=== PATIENT | male | born 1970 | race Caucasian/White ===

== ENCOUNTER 2021-11-26 15:37 | Outpatient (CLI) | payer OTHER, SELFPAY ==
--- NOTE | ~2021-11-26 | MR_ITS ---
EXAMINATION: MR IAC wo/w con DATE: 11/26/2021 17:04 INDICATION: Abnormal optokinetic response. Dizziness. Headache. TECHNIQUE: Magnetic resonance imaging (MRI) of the brain, brainstem, and internal auditory canals was performed without and with 17 mL MultiHance intravenous contrast. Sequences included sagittal and ax ial T1-weighted FSE, axial diffusion-weighted FS EPI, axial T2*-weighted GRE, axial T2-weighted FLAIR Propeller, axial T2-weighted Propeller, small ymkxl-tx-ecss coronal FIESTA, small jotvr-ta-borg fouzia nal T1-weighted FSE, and small lnjjn-cs-iugc axial T1-weighted SPGR. Postcontrast sequences included axial T1-weighted FSE, small pgrcy-oq-ucrf coronal T1-weighted FSE, and small uufnc-mr-fweb axial T1- weighted SPGR. Apparent diffusion coefficient (ADC) maps were created. COMPARISON: None. FINDINGS: There is no intracranial hemorrhage, acute infarction, or abnormal intracranial mass lesion . The ventricles are normal in size. There is mild mucosal thickening in the paranasal sinuses. The o rbits are normal. The internal auditory canals and inner and middle ears are normal. The mastoid air cells are normal. IMPRESSION: 1. Normal brain. Reviewed, dictated and finalized at location A. CEMENTER IMPRESSION: 1. Normal brain.
[2021-11-26 16:15] LABS: Estimated Glomerular Filt Rate 53
== END 2021-11-26 15:38 | disposition home or self-care (01) ==
PROVIDERS: Visit Provider Nurse Practitioner Family
DX: R94.11 Abnormal results of function studies of eye (principal)
CPT/HCPCS: 70553; A9577

== ENCOUNTER 2022-02-04 02:29 | Day surgery (SDC) | payer OTHER, SELFPAY ==
--- NOTE | 2022-02-01 17:15 | PM.HPGS ---
History of Present Illness History of Present Illness Consent: Risks, benefits, and alternatives have been discussed and questions answered. Patient agrees to proceed with procedure. Chief complaint: left proxmial ureteral stone Narrative: Ernesto Hawkins is a 51 year old male patient is known to our practice with a history of elevated PSA status post prior negative prostate biopsy by Dr. Dexter in 2019. He was recently admitted this [facility] in [place], [place] for a 4 mm obstructing left proximal ureteral calculus. He underwent cystoscopy and left ureteral stent placement by Dr. Ortega and now presents for definitive stone intervention. He is aware the risk of ureteroscopy including, but not limited to, ureteral injury, persistent stone fragments, postoperative hematuria and recurrent stones. Review of Systems Cardiovascular: Cardiovascular: Denies chest pain, Denies lightheadedness, Denies palpitations and Denies dyspnea Respiratory: Respiratory: Denies dyspnea Gastrointestinal: Gastrointestinal: Denies diarrhea, Denies nausea and Denies vomiting Genitourinary: Genitourinary: Denies hematuria and Denies dysuria Endocrine: Endocrine: Denies palpitations Meds Home Medications and Allergies Allergies Allergy/AdvReac Type Severity Reaction Status Date / Time No Known Allergies Allergy Verified 10/24/18 05:58 Exam Const: General: no acute distress Resp: Effort & Inspection: normal respiratory effort GI: Inspection: non-distended GI Palp: No abdominal tenderness and No Guarding due to palpation present (GI) Auscultation: normal bowel sounds Assessment and Plan Assessment and plan (1) Left ureteral stone: Code(s): N20.1 - Calculus of ureter Status: Acute Assessment and Plan: Cystoscopy, left ureteroscopy with stone extraction, possible laser lithotripsy, possible retrograde pyelography and ureteral stent replacement.
--- NOTE | 2022-02-03 09:22 | PC.NURSE ---
Pt at 's office, unable to complete interview. Instructed pt to arrive to [facility] at 1030 on 02/04/22 for surgery at 1230. Informed that one person could come in to the hospital with him. Pt instructed to have no food after midnight, but could have up to 20 oz of clear liquids until 0930. Pt did not have full med list with him, but knew he takes a pain pill and amlodipine. Instructed that both medications could be taken in the morning. Pt notified that he would not be able to drive himself home from procedure. Pt verbalizes understanding of all information and has no further questions at this time.
[2022-02-04] VITALS (11 sets, daily range): BP systolic 112–144; BP diastolic 82–102; PULSE 75–111; RESP 12–18; TEMP 36.4–36.8; O2SAT 95–100; BMI 27.0
--- NOTE | ~2022-02-04 | XR_ITS ---
EXAMINATION: XR retrograde pyelogram LT DATE: 02/04/2022 12:10 INDICATION: Left internal ureteral stent placement TECHNIQUE: Fluoroscopic images from a left internal ureteral stent placement are submitted for review . 50 to seconds of fluoroscopy time. 9 fluoroscopic images. FINDINGS: There is a left double-J internal ureteral stent projecting in expected position, with proximal [place] loop at the level of the renal pelvis and distal loop in the pelvis within the bladder lumen. IMPRESSION: 1. Left internal ureteral stent placement. Please refer to real-time procedural findings for detail s. Reviewed, dictated and finalized at location B. IMPRESSION: 1. Left internal ureteral stent placement. Please refer to real-time procedur al findings for details.
--- NOTE | 2022-02-04 06:34 | WPDHPUPDATE1 ---
History and Physical Update Update Date/Time: 02/04/22 06:34 History and Physical has been reviewed, including an updated exam of the patient. There are NO changes in the patient's condition. Risks, benefits, and alternatives have been discussed and questions answered. Patient agrees to proceed with procedure.
--- NOTE | 2022-02-04 08:36 | PC.NURSE ---
Report to the Outpatient Waiting Room, entrance under the green pavilion located off [facility], at time 1030 on date 02/04/22. OR Time: 1230. - You and your visitor will be asked a series of questions to screen for COVID 19 for your protection. - A mask is required within the hospital. Preoperative COVID Testing Requirements: No COVID Test needed if: (proof is required; if not received patient will have Rapid Test prior to entry) - Patient has received COVID Vaccine at least 14 days prior to procedure date or - Patient has positive COVID test result within last 90 days of surgery date. COVID Test needed if above criteria is not met If not COVID vaccinated a COVID test must be conducted within 72 hours of surgery and patient is asked to isolate self from time of testing until procedure. You will go to the [facility] for your COVID testing. The [facility] is located at the corner of [address] [facility]. You will only be called if COVID results are positive and your surgeon may reschedule your elective surgery date. Patients may have clear liquids (water, carbonated beverages, clear teas, apple juice) until 3 hours prior to surgery with a maximum of 20 ounces. - No food from midnight until time of surgery - Infants may have breast milk until 4 hours before surgery, formula 6 hours prior to surgery. - Children will be allowed to drink immediately following surgery. If applicable, please bring a bottle or sippy cup to assist with drinking. Juice, water, soda, and popsicles are readily available. For infants on formula, please bring formula the day of surgery. Pacifiers are allowed. Take the following medications with a SIP of water the morning of surgery: AMLODIPINE, XANAX (IF NEEDED) Medications to discontinue per physician: Date to take last dose: Please no make-up, nail tamazight, hairspray, perfume, deodorant, or body powder the day of surgery. No jewelry (including any body piercings) or valuables the day of surgery, leave them at home. Please take a shower or bath the night before, or the morning of, surgery with an antibacterial soap. Wear comfortable, loose fitting clothing. Children are encouraged to wear pajamas. - Jewelry must be removed prior to entering the operating room. Rings and piercings that are not removed may be cut off. - The hospital will not accept responsibility for valuables. - Please leave all valuables, including medications, at home the day of surgery. If you are going home after surgery, a licensed class a truck driver must drive you home. - NO public transportation without another adult. - We recommend that an adult stay with you for 24 hours following discharge. - We also recommend that you do not drive, make important decision, drink alcoholic beverages, or take any drugs that were not prescribed by your health care provider for at least 24 hours after your discharge time. One visitor will be allowed to accompany the patient into the hospital. Patients visitor will be instructed to remain with patient at all times or leave the building. We will allow the visitor to come back to the postoperative area when patient is ready. Follow any additional instructions given to you from your surgeon. Telephone instructions given to CHRISTIAN PIERCE and asked if any additional questions and then verbalized understanding. Patient advised to call surgeon office or pre surgery nurse liaison [phone] if any additional questions.
--- NOTE | 2022-02-04 10:55 | P.PNAN_ITS ---
Anes - Initial Pre Proc Eval Procedure: Operation Date: 02/04/22 12:30 Proposed Procedures p Cystoscopy, Left Ureteroscopy, Retrograde Pyelogram, Stone Extraction, Stent Placement - Devyn Rodriguez MD s Possible Holmium Laser Procedure - Devyn Rodriguez MD Date/Time: 02/04/22 10:55 Surgeon: Devyn Rodriguez MD Pre Op Diagnosis: left proxmial ureteral stone Patient Data Age: 51 Gender: M Height: 1.73 m Weight: 80.74 kg Allergies Allergy/AdvReac Type Severity Reaction Status Date / Time No Known Allergies Allergy Verified 02/04/22 10:48 Home Medications Medication Instructions Recorded Confirmed Type alprazolam [Xanax] 0.5 mg PO TID PRN 02/04/22 02/04/22 History amlodipine 5 mg PO BID 02/04/22 02/04/22 History ergocalciferol (vitamin D2) 1,250 mcg PO WEEKLY 02/04/22 02/04/22 History [Vitamin D2] multivitamin 1 tablet PO DAILY 02/04/22 02/04/22 History nortriptyline 25 mg PO HS 02/04/22 02/04/22 History oxycodone-acetaminophen 1 tablet PO Q6H PRN 02/04/22 02/04/22 History promethazine 25 mg PO Q6H PRN 02/04/22 02/04/22 History tamsulosin [Flomax] 0.4 mg PO DAILY 02/04/22 02/04/22 History Patient hx anesthesia problems: none Family hx anesthesia problems: none Results Review: All pre-operative results and documents have been reviewed as part of the pre-operative evaluation. [facility] Past Medical History Medical History (Updated 02/04/22 @ 10:55 by Issac Baxter DO) Anxiety Hypertension Palpitations Social History Social History Smoking status: Never smoker Alcohol intake: former Alcohol use details: NOT SINCE COMPLICATIONS WITH LONG COVID Substance use: never Substance use type: does not use Living arrangements: alone Spiritual care concerns: No Anes - Eval Final PreProcedure Day of Procedure 02/04/22 10:55 Patient weight: overweight Heart: regular rate and rhythm Lungs: clear to auscultation and normal air movement Airway: Mallampati scale class II Neurological: alert and oriented Last oral intake: >/= 8 hours ASA classification: II Emergent: no Anesthetic plan: proceed Anesthesia type and monitoring: general LMA and standard monitoring Results Review: All pre-operative results and documents have been reviewed as part of the pre-operative evaluation. Informed Consent: The patient's anesthetic plan and its attendant risks and benefits were discussed with the patient/family/POA. Questions were solicited and answers provided to the satisfaction of the patient/family/POA.
[2022-02-04] MEDS: LACTATED RINGERS 1,000 ML 30 ML IV CONT ×2 (11:10→13:53)
[2022-02-04] MEDS: fentaNYL CITRATE INJ (*CRX) 100 MCG/2 ML VIAL 25 MCG IV PUSH ×8 (11:11→13:23)
[2022-02-04] MEDS: ceFAZolin 2 GM/D5W 50 ML 2 GM/50 ML BAG IVPB (11:46)
[2022-02-04] MEDS: LIDOCAINE HCL 2% GEL UROJET 10 ML PKG MUCOUS MEM (11:57)
--- NOTE | 2022-02-04 12:15 | P.OP_ITS ---
Procedure Note - Detailed Date of Procedure 02/04/22 Pre-op Diagnosis Left proxmial ureteral stone Post-op Diagnosis Same Procedure Performed Cystoscopy with left ureteral stent removal, Left retrograde pyelography, left ureteroscopy with stone extraction Surgeon Devyn Rodriguez MD Anesthesia General Description of Procedure Patient is brought to the operative suite where he was prepped and draped in routine sterile fashion while in a dorsal lithotomy position. This is stone after the uneventful induction of the general LMA anesthetic. Cystoscopy is undertaken with a 19 F rigid cystoscope. There was no urethral strictures and minimal prostatic hyperplasia. He has an indwelling left ureteral stent which was brought to the external urethral meatus with a grasping forceps. A 0.035 in glidewire was advanced in left renal pelvis and flexible ureteroscopy was undertaken with a 7.5 F flexible ureteral scope. his 4 mm stone is found in the renal pelvis. I inspected all calices and found no additional. Additionally, left ureter was independently inspected with the flexible ureteral scope and fo und to be without stones. Extracted is 4 mm stone with a Zero tip basket with ease. I opted not to place ureteral stent. He was taken recovery room good condition. Estimated Blood Loss 0 Drains No Packing No Pathology Yes Complications No immediate complications Condition Stable Disposition PACU
[2022-02-04] MEDS: ONDANSETRON INJ 4 MG/2 ML VIAL IV PUSH (13:02)
[2022-02-04] MEDS: HYDROmorphone HCL INJ (*CRX) 1 MG/ML SYR 0.5 MG IV PUSH ×2 (13:38→13:52)
--- NOTE | 2022-02-04 14:34 | SUR.PHASEII ---
PATIENT STATES BLOOD PRESSURE HAS BEEN ELEVATED AT HOME 170S/110S. SEEING NEW PHYSICIAN, TO START BP MEDS NEXT WEEK.
--- NOTE | 2022-02-04 15:20 | SUR.PHASEII ---
02-04-22 PATIENT TAKEN OUT OF DEPARTMENT AT 1436 BY WHEELCHAIR. TAKEN BY MAINTENANCE DISPATCHER LAZARO WEST TO WAITING ROOM. PATIENT STATED HIS RIDE WAS 15 MINUTES AWAY, ASKED TO DRIVE HIMSELF, STATED HIS CAR WAS IN PARKING LOT AND HE DROVE HIMSELF HERE THIS MORNING. PATIENT EDUCATED BY HOSPITAL STAFF ON RISKS OF DRIVING SELF HOME, PATIENT WAS INSTRUCTED TO WAIT FOR RIDE. PATIENT WAITED FOR FRIEND TO PICK HIM UP @1517. PATIENT WAS THEN SEEN GETTING DROPPED OFF AT HIS CAR AND DROVE HIMSELF OUT OF THE PARKING LOT. MANAGER [address] RADHA BARKSDALE NOTIFIED.
== END 2022-02-04 14:36 | disposition home or self-care (01) ==
PROVIDERS: Visit Provider Urology
PROC: (CPT 52352; principal; 2022-02-04 12:30)
DX: N20.1 Calculus of ureter (principal); I10 Essential (primary) hypertension; R00.2 Palpitations; F41.9 Anxiety disorder, unspecified
CPT/HCPCS: 52332; 52352; 74420; 82365; 88300; A9270; C1758; C1769; J0690; J1170; J2250; J2405; J2704; J3010; J7120; Q9966

== ENCOUNTER 2023-03-09 06:40 | Day surgery (SDC) | payer OTHER, SELFPAY ==
[2023-03-09] VITALS (9 sets, daily range): BP systolic 110–162; BP diastolic 70–108; PULSE 63–89; RESP 14–18; TEMP 36.6–37.1; O2SAT 97–100
--- NOTE | ~2023-03-09 | CT_ITS ---
Non-contrast CT scan of the Abdomen and Pelvis Clinical indication: Left flank pain Technique: 2.5 mm axial scans were obtained through the abdomen and pelvis without intravenous or or al contrast. Dose reduction technique was used on this scan by utilizing automated exposure control a nd iterative reconstruction technique. The dose-length product (DLP) was 258.61 mGy-cm. COMPARISON: 10/24/2018 Findings: Images through the lung bases reveal 4 mm left basilar pulmonary nodule adjacent to the fi ssure (axial image 22), unchanged. There is a 7 x 5 mm ovoid stone the proximal left ureter, with Hounsfield units in the range of 1700 (axial image 94). There is mild left hydronephrosis. There is an additional 8 x 6 mm ovoid stone, non obstructing, lying dependently in the dilated left renal pelvis. Multiple nonobstructing right renal stones are present, measuring up to 1.1 cm in maximum diameter. No right ureteral stone or right hydr onephrosis. The liver, spleen, pancreas, gallbladder, and adrenals appear normal. There is no aortic aneurysm. There is no evidence of bowel obstruction. Normal appendix. Images through the pelvis were performed. There is no evidence of ascites or lymphadenopathy. Urinary bladder unremarkable. Prostate gland and seminal vesicles are unremarkable. Bilateral L5 pars intera rticularis defects are present, with 6 mm anterolisthesis of L5 over S1. Impression: 7 x 5 mm proximal left ureteral stone with mild left hydronephrosis, as detailed above. Additional bilateral nonobstructing renal stones, as detailed above. Bilateral L5 pars interarticularis defects, with 6 mm anterolisthesis of L5 over S1. Reviewed, dictated and finalized at location . Impression: 7 x 5 mm proximal left ureteral stone with mild left hydronephrosis, as detaile d above. Additional bilateral nonobstructing renal stones, as detailed above. Bilateral L5 pars interarticularis defects, with 6 mm anterolisthesis of L5 ove r S1.
--- NOTE | ~2023-03-09 | XR_ITS ---
EXAMINATION: XR retrograde pyelo w/stent LT DATE: 03/09/2023 10:40 INDICATION: Left internal ureteral stent placement TECHNIQUE: Fluoroscopic images from a left internal ureteral stent placement are submitted for review . 18 seconds of fluoroscopy time. FINDINGS: There is a left double-J internal ureteral stent projecting in expected position, with proximal Crooks loop at the level of the renal pelvis. Distal loop is not visualized post deployment. IMPRESSION: 1. Left internal ureteral stent placement. Please refer to real-time procedural findings for detail s. Reviewed, dictated and finalized at location A. IMPRESSION: 1. Left internal ureteral stent placement. Please refer to real-time procedur al findings for details.
--- NOTE | ~2023-03-09 | XR_ITS ---
XR abdomen/kub 1V DATE: 03/09/2023 10:06 INDICATION: Left ureteral stone TECHNIQUE: Portable supine AP views COMPARISON: March 09, 2023 CT abdomen pelvis FINDINGS: Approximately 4 x 6.8 mm calcified calculus is noted at the very proximal left ureter at th e L2-3 level. Bilateral renal calcified calculi No evidence of bowel obstruction. Included skeletal structures are unremarkable. Heart size appears normal. The lung bases appear clear. Are noted as well. The psoas shadows are intact. IMPRESSION: Proximal left ureteral calcified calculus in bilateral nephrolithiasis Reviewed, dictated and finalized at Location A. Reviewed, dictated and finalized at location B. IMPRESSION: Proximal left ureteral calcified calculus in bilateral nephrolithia sis
[2023-03-09 07:24] LABS: Basophils Percent Auto 0.3 % (0.2-1.2); Eosinophils Absolute Auto 0.1 K/mm3 (0-0.3); Eosinophils Percent Auto 0.7 % (0-4.4); Hematocrit 45.8 % (42.0-52.0); Hemoglobin 15.5 g/dL (14.0-18.0); Immature Granulocyte Absolute 0.03 K/mm3 (0.00-0.031); Immature Granulocyte Percent A 0.3 % (0-0.5); Lymphocytes Absolute Auto 1.53 K/mm3 (0.9-3.2); Lymphocytes Percent Auto 12.8 % (18.3-44.2); Mean Corpuscular HGB Conc 33.8 g/dl (32-36); Mean Corpuscular Hemoglobin 30.9 pg (26-34); Mean Corpuscular Volume 91.2 fl (80-100); Mean Platelet Volume 9.9 fl (7.4-10.4); Monocytes Absolute Auto 0.9 K/mm3 (0.1-0.6); Monocytes Percent Auto 7.3 % (2.6-8.5); Neutrophils Absolute Auto 9.5 K/mm3 (1.3-6.7); Neutrophils Percent Auto 78.6 % (45.5-73.1); Platelet Count Result 214 k/mm3 (150-375); Red Blood Count 5.02 M/mm3 (4.6-6.20); Red Cell Distribution Width 12.6 % (11.5-14.5)
[2023-03-09 07:33] LABS: Alanine Aminotransferase 40 U/L (6-50); Albumin Level 4.8 g/dL (3.5-5.1); Alkaline Phosphatase 82 U/L (38-126); Anion Gap 8 mmol/L (8-16); Aspartate Amino Transferase 36 U/L (17-59); Bilirubin,Total 0.7 mg/dL (0.2-1.3); Blood Urea Nitrogen 16 mg/dL (9-20); Calcium 9.1 mg/dL (8.4-10.2); Carbon Dioxide 24 mmol/L (22-30); Chloride 108 mmol/L (98-107); Estimated CRCL calculation 59 ml/min; Estimated Glomerular Filt Rate 58; Glucose 108 mg/dL (65-110); Potassium 4.2 mmol/L (3.4-5.0); Sodium 140 mmol/L (137-145)
[2023-03-09] MEDS: ONDANSETRON INJ 4 MG/2 ML VIAL IV PUSH ×2 (07:53→10:58)
[2023-03-09] MEDS: SODIUM CHLORIDE 0.9% IV 1,000 ML 999 ML IV CONT (07:53)
[2023-03-09] MEDS: MORPHINE SULFATE (*CRX) 4 MG/ML INJ IV PUSH (07:53)
[2023-03-09] MEDS: HYDROmorphone HCL INJ (*CRX) 1 MG/ML SYR IV PUSH (08:16)
--- NOTE | 2023-03-09 09:02 | ED.MALEGU ---
HPI - Male Genitourinary General Chief complaint: Urogenital-Male Stated complaint: Flank pain Time Seen by Provider: 03/09/23 07:03 History of Present Illness HPI Narrative: Patient is a 52-year-old male with history of kidney stones presents ER with left flank pain. Reports he last passed a kidney stone last week and he passes them quite often. This pain has been ongoing over the last 3 days. No improvement with home Percocet. Typically sees Dr. Rodriguez. No fevers or chills or sweats. Reports decreased urination. No dysuria. No blood in stool. No pain in abdomen or testicle. Related Data Home Medications Medication Instructions Recorded Confirmed alprazolam 0.5 mg tablet (Xanax) 0.5 mg PO TID PRN Anxiety 02/04/22 02/04/22 amlodipine 5 mg tablet 5 mg PO BID 02/04/22 02/04/22 ergocalciferol (vitamin D2) 1,250 1,250 mcg PO WEEKLY 02/04/22 02/04/22 mcg (50,000 unit) capsule (Vitamin D2) multivitamin 1 tablet PO DAILY 02/04/22 02/04/22 nortriptyline 25 mg capsule 25 mg PO HS 02/04/22 02/04/22 oxycodone-acetaminophen 10 mg-325 1 tablet PO Q6H PRN Pain 02/04/22 02/04/22 mg tablet promethazine 25 mg tablet 25 mg PO Q6H PRN Nausea 02/04/22 02/04/22 tamsulosin 0.4 mg capsule (Flomax) 0.4 mg PO DAILY 02/04/22 02/04/22 Allergies Allergy/AdvReac Type Severity Reaction Status Date / Time No Known Allergies Allergy Verified 02/04/22 10:48 Review of Systems Review of Systems: All systems reviewed & are unremarkable except as noted in HPI and below Constitutional: Constitutional: Denies chills and Denies fever(s) Cardiovascular: Cardiovascular: Denies chest pain, Denies rapid heart rate and Denies radiating jaw, neck or arm pain Respiratory: Respiratory: Denies cough and Denies dyspnea Gastrointestinal: Gastrointestinal: Denies abdominal pain, Reports nausea and Denies vomiting Genitourinary: Genitourinary: Denies hematuria, Reports oliguria, Denies dysuria and Denies testicular pain Comments: Left flank pain PMFSH Past Medical History Medical History (Updated 03/09/23 @ 09:02 by Tim Avilez MD) Anxiety Hypertension Palpitations Social History Social History Smoking status: Never smoker Alcohol intake: former Alcohol use details: NOT SINCE COMPLICATIONS WITH LONG COVID Substance use: never Substance use type: does not use Living arrangements: alone Spiritual care concerns: No Exam Narrative: GENERAL: Uncomfortable-appearing, well-nourished, and in mild distress. HEAD: Normocephalic, atraumatic. EYES: PERRL and EOMI. ENT: Mucous membranes moist. CHEST: Clear to auscultation. No respiratory distress. HEART: Regular rate and rhythm. Normal peripheral pulses. Back: No CVA tenderness. EXTREMITIES: Normal range of motion. No edema. SKIN: Warm, dry, no rash. NEURO: Alert and oriented x3. PSYCH: Normal mood and affect. Course Course Emergency Course: Symptoms markedly improved with Dilaudid, morphine did not help. Discussed case with urology and given the size and proximity of the stone and patient's symptoms they would like to take him to the OR for stenting. Patient agreeable to plan. Patient will also receive ceftriaxone given elevated white blood cell count with obstructing stone. Patient will try to provide urine. Vital Signs Vital signs: Vital Signs Temperature 97.8 F 03/09/23 06:48 Pulse Rate 70 03/09/23 06:48 Respiratory Rate 17 03/09/23 06:48 Blood Pressure 155/108 H 03/09/23 06:48 Pulse Oximetry 100 03/09/23 06:48 Temperature 97.8 F 03/09/23 06:48 Pulse Rate 89 03/09/23 09:02 Respiratory Rate 18 03/09/23 09:02 Blood Pressure 162/90 H 03/09/23 09:02 Pulse Oximetry 99 03/09/23 09:02 MDM - Male Genitourinary Lab Data 03/09/23 07:18 03/09/23 07:18 Labs: Lab Results 03/09/23 03/09/23 03/09/23 Range/Units 07:18 07:18 09:14 WBC 1
[2023-03-09] MEDS: HYDROmorphone HCL INJ (*CRX) 1 MG/ML SYR 0.5 MG IV PUSH (09:08)
--- NOTE | 2023-03-09 09:20 | ECG_ITS ---
Measurements Intervals [place] Rate: 74 P: 7 ME: 170 QRS: -1 QRSD: 84 T: 5 QT: 369 QTc: 410 Interpretive Statements SINUS RHYTHM NO PREVIOUS ECG AVAILABLE FOR COMPARISON Electronically Signed On 03-09-2023 15:53:36 CDT by Marzena Smith M.D.
[2023-03-09 09:27] LABS: Appearance Urine Clear (Clear); Bacteria Urine None Seen /hpf; Bilirubin Urine Negative (Negative); Blood Urine 3+ (Negative); Color Urine Yellow (Yellow); Glucose Urine UA Negative (Negative); Ketones Urine Negative (Negative); Leukocyte Esterase Ur 1+ LEU/UL (Negative); Nitrate Urine Negative (Negative); Non Pathogenic Casts 0-2; Protein Urine Trace mg/dL (Negative); RBC Urine >100 /hpf (0-2); Specific Grav Ur 1.012 (1.001-1.035); Squamous Epithelial Cell Urine None seen /hpf (Few); Urobilinogen Urine 0.2 mg/dL (<2.0); WBC Urine 21-50 /hpf; pH Urine 6.5 (5.0-9.0)
[2023-03-09 09:37] LABS: Add Urine Microscopic? YES
--- NOTE | 2023-03-09 09:49 | WPDANESEPPF ---
Anes - Initial Pre Proc Eval Procedure: Operation Date: 03/09/23 10:30 Proposed Procedures p Cystosccopy, Left Retrograde Pyelogram, Left Stent Placement - Christopher Jimenez MD Date/Time: 03/09/23 09:49 Surgeon: Christopher Jimenez MD Pre Op Diagnosis: Flank pain Patient Data Age: 52 Gender: M Height: 1.75 m Weight: 80 kg Last Vital Signs Temp 36.6 C 03/09/23 06:48 Pulse 89 03/09/23 09:02 Resp 18 03/09/23 09:02 BP 162/90 H 03/09/23 09:02 Pulse Ox 99 03/09/23 09:02 Allergies Allergy/AdvReac Type Severity Reaction Status Date / Time No Known Allergies Allergy Verified 02/04/22 10:48 Home Medications Medication Instructions Recorded Confirmed Type alprazolam 0.5 mg tablet (Xanax) 0.5 mg PO TID PRN Anxiety 02/04/22 02/04/22 History amlodipine 5 mg tablet 5 mg PO BID 02/04/22 02/04/22 History ergocalciferol (vitamin D2) 1,250 1,250 mcg PO WEEKLY 02/04/22 02/04/22 History mcg (50,000 unit) capsule (Vitamin D2) hydrocodone 5 mg-acetaminophen 325 1 - 2 tablet PO Q6H PRN pain #20 02/04/22 Rx mg tablet tabs multivitamin 1 tablet PO DAILY 02/04/22 02/04/22 History nortriptyline 25 mg capsule 25 mg PO HS 02/04/22 02/04/22 History oxycodone-acetaminophen 10 mg-325 1 tablet PO Q6H PRN Pain 02/04/22 02/04/22 History mg tablet promethazine 25 mg tablet 25 mg PO Q6H PRN Nausea 02/04/22 02/04/22 History sulfamethoxazole 800 1 tablet PO Q12H #6 tabs 02/04/22 Rx mg-trimethoprim 160 mg tablet tamsulosin 0.4 mg capsule (Flomax) 0.4 mg PO DAILY 02/04/22 02/04/22 History Laboratory Tests 03/09/23 03/09/23 03/09/23 07:18 07:18 09:14 WBC 12.0 K/mm3 H K/mm3 (4.5-10.0) RBC 5.02 M/mm3 M/mm3 (4.6-6.20) Hgb 15.5 g/dL g/dL (14.0-18.0) Hct 45.8 % % (42.0-52.0) MCV 91.2 fl fl (80-100) MCH 30.9 pg pg (26-34) MCHC 33.8 g/dl g/dl (32-36) RDW 12.6 % % (11.5-14.5) Plt Count 214 k/mm3 k/mm3 (150-375) MPV 9.9 fl fl (7.4-10.4) Immature Gran % (Auto) 0.3 % % (0-0.5) Neut % (Auto) 78.6 % H % (45.5-73.1) Lymph % (Auto) 12.8 % L % (18.3-44.2) [place] % (Auto) 7.3 % % (2.6-8.5) Eos % (Auto) 0.7 % % (0-4.4) Baso % (Auto) 0.3 % % (0.2-1.2) Lymph # (Auto) 1.53 K/mm3 K/mm3 (0.9-3.2) [place] # (Auto) 0.9 K/mm3 H K/mm3 (0.1-0.6) Eos # (Auto) 0.1 K/mm3 K/mm3 (0-0.3) Baso # (Auto) 0.0 K/mm3 K/mm3 (0.0-0.1) Abs Immat Gran (auto) 0.03 K/mm3 K/mm3 (0.00-0.031) Absolute Neuts (auto) 9.5 K/mm3 H K/mm3 (1.3-6.7) Absolute Nucleated RBC 0.0 K/mm3 K/mm3 (0.0-0.012) Nucleated RBC % 0.0 % % (0.0-0.2) Sodium 140 mmol/L mmol/L (137-145) Potassium 4.2 mmol/L mmol/L (3.4-5.0) Chloride 108 mmol/L H mmol/L (98-107) Carbon Dioxide 24 mmol/L mmol/L (22-30) Anion Gap 8 mmol/L mmol/L (8-16) BUN 16 mg/dL mg/dL (9-20) Creatinine 1.30 mg/dL mg/dL (0.7-1.3) Estim Creat Clear Calc 59 ml/min ml/min Estimated GFR 58 L (59 - ) Glucose 108 mg/dL mg/dL (65-110) Calcium 9.1 mg/dL mg/dL (8.4-10.2) Total Bilirubin 0.7 mg/dL mg/dL (0.2-1.3) AST 36 U/L U/L (17-59) ALT 40 U/L U/L (6-50) Alkaline Phosphatase 82 U/L U/L (38-126) Total Protein 7.0 g/dL g/dL (6.3-8.2) Albumin 4.8 g/dL g/dL (3.5-5.1) Urine Color Yellow (Yellow) Urine Appearance Clear (Clear) Urine pH 6.5 (5.0-9.0) Ur Specific [place] 1.012 (1.001-1.035) Urine Protein Trace mg/dL mg/dL (Negative) Urine Glucose (UA) Negative mg/dL mg/dL (Negative) Urine Ketones Negative mg/dL mg/dL (Negative) Ur Blood (Man) 3+ H
[2023-03-09] MEDS: LACTATED RINGERS 1,000 ML 30 ML IV CONT (09:50)
--- NOTE | 2023-03-09 09:57 | WPDURCON ---
Assessment and Plan Assessment and plan (1) Left ureteral stone: Code(s): N20.1 - Calculus of ureter Status: Acute Assessment and Plan: Obtain Consent. Get KUB for surgical planning, if stone is visible, will plant to do a left ESWL next Tuesday. Patient takes NSAIDS for his knee, which he is aware he will need to hold for one week prior. Keep NPO. Dr. Jimenez to take patient to OR today for: Cystoscopy, left stent placement, left retrograde pyelogram. Urology Consult Note HPI Date Seen: 03/09/23 Time Seen: 09:58 Requesting Physician: Christopher Jimenez MD Primary Care Provider: PHYSICIAN NOT ON STAFF Consult Narrative Reason for consult: Left Ureteral Stone/Left Flank Pain Narrative: Ernesto Hawkins is a 52 year old male who presented to the ER this morning for worsening left flank pain, nausea, vomiting and urgency of urination that began to days ago, but worsened throughout the night. He has a long history of kidney stones and is a longtime patient of Dr. Rodriguez. He took Hydrocodone but the pain was unbearable, Dilaudid and Morphine in the ER have not resolved his pain. He has a WBC of 12,000, Creatinine 1.30. UA shows blood only but is not suspicious of infection. CT scan shows a 7x5mm proximal left uretal stone with mild left hydronephrosis and bilateral non obstructive renal stones including an 8x6mm left renal stone in the dilated renal pelvis. There has been no KUB done at this time. Urine cultures are pending at this time. Review of Systems Cardiovascular: Cardiovascular: Denies chest pain Respiratory: Respiratory: Reports no additional respiratory complaints Gastrointestinal: Gastrointestinal: Reports abdominal pain (LUQ), Reports nausea and Reports vomiting Genitourinary: Genitourinary: Denies hematuria, Denies dysuria, Reports flank pain (Left Flank pian), Denies urinary frequency, Denies urinary hesitancy, Denies urinary incontinence and Reports urinary urgency PMF Past Medical History Medical History Anxiety Hypertension Palpitations Social History Social History Smoking status: Never smoker Alcohol intake: former Alcohol use details: NOT SINCE COMPLICATIONS WITH LONG COVID Substance use: never Substance use type: does not use Living arrangements: alone Spiritual care concerns: No Meds Home Medications and Allergies Home Medications Medication Instructions Recorded Confirmed Type alprazolam 0.5 mg tablet (Xanax) 0.5 mg PO TID PRN Anxiety 02/04/22 02/04/22 History amlodipine 5 mg tablet 5 mg PO BID 02/04/22 02/04/22 History ergocalciferol (vitamin D2) 1,250 1,250 mcg PO WEEKLY 02/04/22 02/04/22 History mcg (50,000 unit) capsule (Vitamin D2) hydrocodone 5 mg-acetaminophen 325 1 - 2 tablet PO Q6H PRN pain #20 02/04/22 Rx mg tablet tabs multivitamin 1 tablet PO DAILY 02/04/22 02/04/22 History nortriptyline 25 mg capsule 25 mg PO HS 02/04/22 02/04/22 History oxycodone-acetaminophen 10 mg-325 1 tablet PO Q6H PRN Pain 02/04/22 02/04/22 History mg tablet promethazine 25 mg tablet 25 mg PO Q6H PRN Nausea 02/04/22 02/04/22 History sulfamethoxazole 800 1 tablet PO Q12H #6 tabs 02/04/22 Rx mg-trimethoprim 160 mg tablet tamsulosin 0.4 mg capsule (Flomax) 0.4 mg PO DAILY 02/04/22 02/04/22 History Allergies Allergy/AdvReac Type Severity Reaction Status Date / Time No Known Allergies Allergy Verified 03/09/23 10:05 Vital Signs Vital Signs - 24 hr 03/09/23 06:48 03/09/23 09:02 Temperature 97.8 F Pulse Rate 70 89 Respiratory Rate 17 18 Blood Pressure 155/108 H 162/90 H Pulse Oximetry 100 99 Exam Const: General: cooperative Resp: Effort & Inspection: normal respiratory effort Cardio: Rate: regular rate GI: GI Palp: Yes Soft to palpation and Yes Tenderness to palpation present (GI) (LUQ) : General: Y
[2023-03-09] MEDS: fentaNYL CITRATE INJ (*CRX) 100 MCG/2 ML VIAL 25 MCG IV PUSH ×5 (10:05→11:14)
--- NOTE | 2023-03-09 10:12 | WPDHPUPDATE1 ---
History and Physical Update Update Date/Time: 03/09/23 10:12 History and Physical has been reviewed, including an updated exam of the patient. There are NO changes in the patient's condition. Risks, benefits, and alternatives have been discussed and questions answered. Patient agrees to proceed with procedure.
[2023-03-09] MEDS: LIDOCAINE HCL 2% GEL UROJET 10 ML PKG MUCOUS MEM (10:32)
--- NOTE | 2023-03-09 10:38 | W.PM.PROC2 ---
Procedure Note - Detailed Date of Procedure 03/09/23 Pre-op Diagnosis left ureteral stone Post-op Diagnosis Same Procedure Performed Cystoscopy, left retrograde pyelogram, left ureteral stent insertion Surgeon Christopher Jimenez MD Anesthesia General Description of Procedure Informed consent is obtained. Patient examined. Given preoperative IV antibiotics in the ER. He was induced anesthesia. He was prepped and draped normal sterile fashion. A 22 F cystoscope was inserted through the urethra into bladder the bladder there no mucosal abnormalities. Plain film revealed the left proximal ureteral stone to be visible as well as other nonobstructing stones also seen in the kidneys. We then cannulated the left ureteral orifice and a retrograde pyelogram showed moderate left hydronephrosis above the level the stone. We then placed a wire beyond level stone over the wire placed a 4.8 F variable length stent with a curl in the renal pelvis and a curl in the bladder. The bladder was emptied lidocaine instilled patient was awakened and taken recovery in stable condition. Urine Output 200 Pathology None sent Complications No immediate complications Condition Stable Disposition PACU
[2023-03-09] MEDS: oxyCODONE HCL (*CRX) 5 MG TAB IR PO (11:40)
== END 2023-03-09 12:05 | disposition home or self-care (01) ==
LOC: ANHED 09:02 → ANHSURGERY 09:14
PROVIDERS: Emergency Provider Emergency Medicine; Visit Provider Urology
PROC: (CPT 52352; principal; 2023-03-09 10:30)
DX: N13.2 Hydronephrosis with renal and ureteral calculous obstruction (principal); I10 Essential (primary) hypertension; F41.9 Anxiety disorder, unspecified
CPT/HCPCS: 52332; 36415; 74018; 74176; 74420; 80053; 81001; 85025; 87086; 93005; 96361; 96365; 96375; 96376; 99285; A9270; C1769; C1887; C2617; J0696; J1100; J1170; J2270; J2405; J2704; J3010; J7030; J7120

== ENCOUNTER 2023-03-18 01:12 | Day surgery (SDC) | payer OTHER, SELFPAY ==
--- NOTE | 2023-03-15 16:12 | PC.NURSE ---
Report to the Outpatient Waiting Room, entrance under the green pavilion located off [facility], at time 0730 on date 03/18/23. Planned Procedure Time: 0930. Time changes happen often and if your time is changed the preop area will call you the afternoon before. - You and your visitor will be asked to self-screen and do not enter if you have any COVID symptoms. - A mask is optional within the hospital at this time. Patients may have clear liquids (water, carbonated beverages, clear teas, apple juice) until 3 hours prior to surgery with a maximum of 20 ounces. 0630 - No food from midnight until time of surgery - Infants may have breast milk until 4 hours before surgery, formula 6 hours prior to surgery. - Children will be allowed to drink immediately following surgery. If applicable, please bring a bottle or sippy cup to assist with drinking. Juice, water, soda, and popsicles are readily available. For infants on formula, please bring formula the day of surgery. Pacifiers are allowed. Take the following medications with a SIP of water the morning of surgery: coreg, cardizem, pepcid, oxybutynin, oxycodone, flomax DO NOT STOP ANY OF YOUR OTHER PRESCRIPTION MEDICATIONS PRIOR TO SURGERY ?EXCEPT THE FOLLOWING Medications to discontinue per physician multivitamin Date to take last dose 03/15/23 Please no make-up, nail colombian, hairspray, perfume, deodorant, or body powder the day of surgery. No jewelry (including any body piercings) or valuables the day of surgery, leave them at home. Please take a shower or bath the night before, or the morning of, surgery with an antibacterial soap. Wear comfortable, loose fitting clothing. Children are encouraged to wear pajamas. - Jewelry must be removed prior to entering the operating room. Rings and piercings that are not removed may be cut off. - The hospital will not accept responsibility for valuables. - Please leave all valuables, including medications, at home the day of surgery. If you are going home after surgery, a licensed driver recruiter must drive you home. - NO public transportation without another adult if you receive anesthesia. - We recommend that an adult stay with you for 24 hours following discharge. - We also recommend that you do not drive, make important decision, drink alcoholic beverages, or take any drugs that were not prescribed by your health care provider for at least 24 hours after your discharge time. For Pediatric surgeries, we recommend two adults accompany the child home. Follow any additional instructions given to you from your surgeon. If you or anyone in your household have experienced Covid symptoms in the past week, please notify your surgeon or the nurse liaison at the phone number below for possible testing. Telephone instructions given to Ernesto Hawkins and asked if any additional questions and then verbalized understanding. Patient advised to call surgeon office or pre surgery nurse liaison [phone] if any additional questions.
[2023-03-15 16:23] VITALS: BMI 26.3
[2023-03-18] VITALS (7 sets, daily range): BP systolic 118–145; BP diastolic 83–96; PULSE 52–65; RESP 14–18; TEMP 36.4; O2SAT 96–100
--- NOTE | ~2023-03-18 | XR_ITS ---
Supine and upright views of the abdomen Clinical history: Lithotripsy COMPARISON: 03/09/2023 Findings: Bowel gas pattern is nonspecific. No evidence for obstruction or free air. There has been i nterval placement of left ureteral stent. Bilateral nephrolithiasis is unchanged from prior exam, inc luding 7 mm stone at the left renal pelvis, 8 mm stone at the left lower renal pole, and numerous rig ht renal stones. Osseous structures are intact. Impression: Bilateral nephrolithiasis, as noted above, similar to prior exam. Left ureteral stent now present. Reviewed, dictated and finalized at location M. Impression: Bilateral nephrolithiasis, as noted above, similar to prior exam. Left ureteral stent now present.
--- NOTE | 2023-03-18 08:26 | WPDHPUPDATE1 ---
History and Physical Update Update Date/Time: 03/18/23 08:26 History and Physical has been reviewed, including an updated exam of the patient. There are NO changes in the patient's condition. Risks, benefits, and alternatives have been discussed and questions answered. Patient agrees to proceed with procedure. Proced with eswl of left renal calculus
[2023-03-18] MEDS: LACTATED RINGERS 1,000 ML 30 ML IV CONT ×2 (08:30→10:23)
[2023-03-18 09:03] LABS: INR 0.9
[2023-03-18 09:04] LABS: Partial Thromboplastin Time 23.1 SECONDS (22.3-36.8)
--- NOTE | 2023-03-18 09:11 | WPDANESEPPF ---
Anes - Initial Pre Proc Eval Procedure: Operation Date: 03/18/23 09:30 Proposed Procedures p Left Ureteral Extracorporeal Shock Wave Lithotripsy - Yandel Dexter MD Date/Time: 03/18/23 09:11 Surgeon: Yandel Dexter MD Pre Op Diagnosis: Lt Ureteral Stone Patient Data Age: 52 Gender: M Height: 1.75 m Weight: 83.6 kg Last Vital Signs Temp 36.4 C 03/18/23 08:05 Pulse 57 L 03/18/23 08:05 Resp 18 03/18/23 08:05 BP 125/83 03/18/23 08:05 Pulse Ox 99 03/18/23 08:05 O2 Del Method Room Air 03/18/23 08:05 Allergies Allergy/AdvReac Type Severity Reaction Status Date / Time No Known Allergies Allergy Verified 03/18/23 08:17 Home Medications Medication Instructions Recorded Confirmed Type alprazolam 0.5 mg tablet (Xanax) 0.5 mg PO TID PRN Anxiety 02/04/22 03/18/23 History multivitamin 1 tablet PO DAILY 02/04/22 03/18/23 History nortriptyline 25 mg capsule 25 mg PO HS 02/04/22 03/18/23 History oxycodone-acetaminophen 10 mg-325 1 tablet PO Q6H PRN Pain 02/04/22 03/18/23 History mg tablet promethazine 25 mg tablet 25 mg PO Q6H PRN Nausea 02/04/22 03/18/23 History tamsulosin 0.4 mg capsule (Flomax) 0.4 mg PO DAILY 02/04/22 03/18/23 History carvedilol 12.5 mg tablet 12.5 mg PO BID 03/15/23 03/18/23 History diltiazem HCl 300 mg 300 mg PO DAILY 03/15/23 03/18/23 History capsule,extended release 24 hr famotidine 20 mg tablet (Pepcid) 20 mg PO DAILY 03/15/23 03/18/23 History oxybutynin chloride 5 mg tablet 5 mg PO BID PRN spasms 03/15/23 03/18/23 History Laboratory Tests 03/18/23 08:41 PT 12.0 Seconds (11.1-14.7) INR 0.9 APTT 23.1 SECONDS (22.3-36.8) Patient hx anesthesia problems: none Family hx anesthesia problems: none Results Review: All pre-operative results and documents have been reviewed as part of the pre-operative evaluation. [facility] Past Medical History Medical History Anxiety Hypertension Palpitations Social History Social History Smoking status: Never smoker Alcohol intake: former Drinks per week: 2 Alcohol use details: NOT SINCE COMPLICATIONS WITH LONG COVID Substance use: never Substance use type: does not use Living arrangements: alone Spiritual care concerns: No Anes - Eval Final PreProcedure Day of Procedure 03/18/23 09:11 Patient weight: overweight Heart: regular rate and rhythm Lungs: clear to auscultation Airway: Mallampati scale class II Neurological: alert and oriented Last oral intake: >/= 8 hours ASA classification: II Emergent: no Anesthetic plan: proceed Anesthesia type and monitoring: general LMA and standard monitoring Results Review: All pre-operative results and documents have been reviewed as part of the pre-operative evaluation. Informed Consent: The patient's anesthetic plan and its attendant risks and benefits were discussed with the patient/family/POA. Questions were solicited and answers provided to the satisfaction of the patient/family/POA.
[2023-03-18] MEDS: ceFAZolin 2 GM/D5W 50 ML 2 GM/50 ML BAG IVPB (09:27)
--- NOTE | 2023-03-18 10:11 | W.PM.PROC2 ---
Procedure Note - Detailed Date of Procedure 03/18/23 Pre-op Diagnosis Left renal calculus x2 Post-op Diagnosis Same Procedure Performed Lithotripsy of left renal calculus Surgeon Yandel Dexter MD Anesthesia General Description of Procedure Patient is taken to the operative suite correctly identified. Once anesthesia was obtained he was placed in the supine position. His proximal ureteral stone had been pushed back up into the kidney was adjacent to the left renal stone. Since these were next to each other we simply gave shocks to both stones. There were visualized in both planes. Two thousand five hundred shocks were given. Patient tolerated procedure well without any complications and was taken recovery stable condition. This completes to take a philip. Please send a copy this to my office Estimated Blood Loss 0 Drains Yes (Has indwelling stent) Packing No Pathology None sent Complications No immediate complications Condition Stable Disposition PACU
[2023-03-18] MEDS: fentaNYL CITRATE INJ (*CRX) 100 MCG/2 ML VIAL 25 MCG IV PUSH ×4 (10:32→10:56)
[2023-03-18] MEDS: ONDANSETRON INJ 4 MG/2 ML VIAL IV PUSH (10:45)
== END 2023-03-18 12:01 | disposition home or self-care (01) ==
PROVIDERS: Visit Provider Urology
PROC: (CPT 50590; principal; 2023-03-18 09:30)
DX: N20.0 Calculus of kidney (principal); I10 Essential (primary) hypertension; F41.9 Anxiety disorder, unspecified
CPT/HCPCS: 50590; 36415; 74018; 85610; 85730; J0131; J0690; J1100; J2250; J2405; J2704; J3010; J7120

== ENCOUNTER 2023-04-04 10:23 | Outpatient (CLI) | payer OTHER, SELFPAY ==
--- NOTE | ~2023-04-04 | XR_ITS ---
XR abdomen/kub 1V 04/04/2023 10:46 Indication: Left ureteral stone Procedure: KUB Comparison: 03/18/2023 Findings: There are multiple right renal stones. There is a left internal ureteral stent present. The re is a punctate left pelvic phlebolith. No definite left renal or ureteral stones. Nonobstructive chio wel gas pattern. No acute osseous abnormality. Impression: 1: Right nephrolithiasis. Reviewed, dictated and finalized at location B. Impression: 1: Right nephrolithiasis.
== END 2023-04-04 10:24 | disposition home or self-care (01) ==
PROVIDERS: Visit Provider Urology
DX: N20.1 Calculus of ureter (principal)
CPT/HCPCS: 74018